=== PATIENT | female | born 1950 | race African-American/Black ===

== ENCOUNTER 2022-09-02 23:52 | Inpatient (IN) | payer OTHER, MEDICAID ==
[~2022-09-02] VITALS: Ht 162.6 cm; Wt 79.5 kg
[2022-09-03 01:22] LABS: BASOPHILS % 0.7 % (0.0-2.0); EOSINOPHILS % 0.1 % (0.0-5.0); HEMATOCRIT. 35.6 % (36.0-48.0); HEMOGLOBIN. 11.9 g/dL (12.0-16.0); LYMPHOCYTES % 45.4 % (20.0-50.0); MEAN CORPUSCULAR HEMOGLOBIN 29.7 pg (28.0-32.0); MEAN PLATELET VOLUME 8.1 fl (7.4-10.4); MONOCYTES % 4.7 % (2.0-8.0); NEUTROPHILS % 49.1 % (40.0-76.0); PLATELET 188 x1000/uL (130-400); RED CELL DISTRIBUTION WIDTH 13.9 % (11.6-14.6)
[2022-09-03 01:29] LABS: CHLORIDE 107 mEq/L (98-107)
[2022-09-03] MEDS ORDERED: HEPARIN 25,000 UNITS PREMIX 250 ML IV ONE (03:15)
[2022-09-03] MEDS ORDERED: HEPARIN 5000 UNITS/ML VIAL IV ONE (03:15)
[2022-09-03] MEDS ORDERED: HEPARIN 60 UNITS/KG BOLUS IV NR (04:30)
[2022-09-03] MEDS ORDERED: HEPARIN 25,000 UNITS PREMIX 250 ML IV SCH (04:30)
[2022-09-03] MEDS ORDERED: HEPARIN BOLUS PRN aPTT <30 IV (11:00)
[2022-09-03] MEDS ORDERED: HEPARIN BOLUS PRN aPTT 30-44 IV (11:00)
[2022-09-03] MEDS ORDERED: ASPIRIN 81MG EC TABLET PO NR (12:00)
[2022-09-03 13:38] LABS: INR 1.1; PARTIAL THROMBOPLASTIN TIME 40.7 sec (23.4-31.0); PROTHROMBIN TIME 11.4 sec (9.6-11.0)
[2022-09-03] MEDS ORDERED: ZOLPIDEM TARTRATE 5MG TABLET PO PRN (17:15)
[2022-09-03] MEDS ORDERED: DIPHENHYDRAMINE 50MG/ML VIAL IV PRN (17:15)
[2022-09-03] MEDS ORDERED: ACETAMINOPHEN 325MG TABLET PO PRN ×2 (17:15)
[2022-09-03] MEDS ORDERED: ONDANSETRON HCL 4MG/2ML INJ IV PRN (17:15)
[2022-09-03] MEDS ORDERED: CLONIDINE 0.1MG TABLET PO PRN (17:15)
[2022-09-03] MEDS ORDERED: MAGNESIUM/ALUMINUM HYDROXIDE/SIMETHICONE 30ML UDC PO PRN (17:15)
[2022-09-03] MEDS ORDERED: ENOXAPARIN 40MG/0.4ML SYR SUBCUT SCH (18:00)
[2022-09-03] MEDS: SODIUM CHLORIDE 0.9% INJ 3ML FLUSH IVF SCH (22:17)
[2022-09-04 04:47] LABS: BASOPHILS % 0.7 % (0.0-2.0); EOSINOPHILS % 0.4 % (0.0-5.0); HEMATOCRIT. 33.6 % (36.0-48.0); HEMOGLOBIN. 11.4 g/dL (12.0-16.0); LYMPHOCYTES % 65.4 % (20.0-50.0); MEAN CORPUSCULAR HEMOGLOBIN 29.8 pg (28.0-32.0); MEAN CORPUSCULAR VOLUME 88.1 fL (81.0-99.0); MEAN PLATELET VOLUME 8.2 fl (7.4-10.4); MONOCYTES % 4.4 % (2.0-8.0); NEUTROPHILS % 29.1 % (40.0-76.0); PLATELET 187 x1000/uL (130-400); RED BLOOD CELL COUNT 3.82 mill/uL (4.2-5.4); RED CELL DISTRIBUTION WIDTH 13.3 % (11.6-14.6)
[2022-09-04] MEDS: SODIUM CHLORIDE 0.9% INJ 3ML FLUSH IVF SCH ×2 (06:31→14:00)
[2022-09-04] MEDS ORDERED: ASPIRIN 81MG EC TABLET PO SCH (09:00)
[2022-09-04 11:30] VITALS: BP 110/65
[2022-09-04 12:00] VITALS: BP 110/65
[2022-09-04 16:00] VITALS: BP 119/46
[2022-09-04 16:21] VITALS: BP 119/46
== END 2022-09-04 16:15 | disposition home or self-care (01) | DRG 282 ==
LOC: ER 09-03 00:29 → EDBD 09-03 00:29 → MICUSO 09-03 03:15 → EDBEDREQ 09-03 03:17 → 8WST 09-04 11:45
PROVIDERS: ADMIT Internal Medicine; ATTEND Internal Medicine
DX: I21.4 Non-ST elevation (NSTEMI) myocardial infarction (principal); I10 Essential (primary) hypertension; D72.819 Decreased white blood cell count, unspecified; Z85.038 Personal history of other malignant neoplasm of large intestine; Z93.3 Colostomy status; Z90.49 Acquired absence of other specified parts of digestive tract
CPT/HCPCS: 36415; 71045; 80048; 80053; 80061; 83880; 84484; 85025; 85379; 93005; 93306; 93970; 99291; J1644; J1650